=== PATIENT | male | born 1995 | race African-American/Black ===

== ENCOUNTER 2022-12-11 00:02 | Emergency (ER) | payer MEDICAID ==
[~2022-12-11] VITALS: Ht 175.3 cm; Wt 64.0 kg
[2022-12-11 00:18] VITALS: BP 126/72; RESP 12; TEMP 98.2; O2SAT 99
[2022-12-11 00:44] VITALS: PULSE 88
[2022-12-11] MEDS ORDERED: SODIUM CHLORIDE 0.9% 1,000 ML IV ONE (01:00)
[2022-12-11 01:38] LABS: BASOPHILS % 0.6 % (0.0-2.0); EOSINOPHILS % 1.6 % (0.0-5.0); HEMATOCRIT. 43.1 % (42.0-52.0); HEMOGLOBIN. 14.5 g/dL (14.0-18.0); LYMPHOCYTES % 32.5 % (20.0-50.0); MEAN CORPUSCULAR HEMOGLOBIN 33.3 pg (28.0-32.0); MEAN CORPUSCULAR HGB CONC 33.6 g/dL (31.0-37.0); MEAN CORPUSCULAR VOLUME 99.2 fL (80.0-94.0); MEAN PLATELET VOLUME 7.3 fl (7.4-10.4); MONOCYTES % 8.1 % (2.0-8.0); NEUTROPHILS % 57.2 % (40.0-76.0); PLATELET 281 x1000/uL (130-400); RED BLOOD CELL COUNT 4.35 mill/uL (4.7-6.1); RED CELL DISTRIBUTION WIDTH 13.3 % (11.6-14.6); WHITE BLOOD COUNT 8.9 x1000/uL (4.5-11.0)
[2022-12-11 01:42] LABS: CHLORIDE 106 mEq/L (98-107); INDEX HEMOLYSI 1 (1-3); INDEX ICTERIC 1 (1-4); INDEX LIPEMIC 1 (1-3); SODIUM 140 mEq/L (136-145)
[2022-12-11 01:44] LABS: CALCIUM 8.8 mg/dL (8.5-10.1)
[2022-12-11 01:50] LABS: CARBON DIOXIDE 29 mEq/L (21-32); CREATININE 0.9 mg/dL (0.6-1.3); GLUCOSE 101 mg/dL (70-105); UREA NITROGEN BLOOD 13 mg/dL (7-21)
[2022-12-11] MEDS ORDERED: IOHEXOL-300 100 ML BOTTLE ONE (03:07)
[2022-12-11] MEDS ORDERED: IBUP-2029 MT (04:57)
== END 2022-12-11 06:03 | disposition home or self-care (01) ==
LOC: ER 00:02
DX: S39.91XA Unspecified injury of abdomen, initial encounter (principal); S93.492A Sprain of other ligament of left ankle, initial encounter; S83.92XA Sprain of unspecified site of left knee, initial encounter; S53.402A Unspecified sprain of left elbow, initial encounter; V89.2XXA Person injured in unspecified motor-vehicle accident, traffic, initial encounter; Y93.89 Activity, other specified; Y92.89 Other specified places as the place of occurrence of the external cause; Y99.8 Other external cause status
CPT/HCPCS: 99291; 74177; 96360; 71045; 80048; 85025; 36415; 73070; 73560; 73610; Q9967; J7030

== ENCOUNTER 2024-03-30 12:13 | Emergency (ER) | payer SELFPAY ==
[~2024-03-30] VITALS: Ht 175.3 cm; Wt 75.0 kg
[~2024-03-30 12:13] MED LIST: IBUP-2029 MT
[2024-03-30 12:15] VITALS: O2SAT 100
[2024-03-30] MEDS: HYDROCODONE/ACETAMINOPHEN 10/325MG TABLET PO ONE (12:43)
[2024-03-30] MEDS: IBUPROFEN 800MG TABLET PO ONE (12:43)
[2024-03-30] MEDS ORDERED: CYCL5TAB3 MT (13:51)
[2024-03-30] MEDS ORDERED: IBUP-2030 MT (13:51)
[2024-03-30 14:20] VITALS: BP 138/72; PULSE 84; RESP 16; TEMP 36.78072; O2SAT 100
== END 2024-03-30 14:22 | disposition home or self-care (01) ==
LOC: ER 12:21
DX: S80.212A Abrasion, left knee, initial encounter (principal); M25.562 Pain in left knee; V29.498A Other motorcycle driver injured in collision with other motor vehicles in traffic accident, initial encounter; Y93.55 Activity, bike riding; Y92.89 Other specified places as the place of occurrence of the external cause; Y99.8 Other external cause status
CPT/HCPCS: 73562; 99283